=== PATIENT | female | born 1965 | race American Indian/Alaskan Native ===

== ENCOUNTER 2019-06-24 19:55 | Emergency (ER) | payer OTHER ==
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
[2019-06-24] MEDS ORDERED: IBUPROFEN PO ONE (22:47)
[2019-06-24] MEDS ORDERED: FLEXERIL PO ONE (22:47)
[2019-06-24 23:21] VITALS: BP 167/80
== END 2019-06-24 23:00 | disposition home or self-care (01) ==
LOC: ED 19:55
DX: M54.5 Low back pain (principal); M25.531 Pain in right wrist; M25.561 Pain in right knee; M25.562 Pain in left knee; M54.2 Cervicalgia; I11.0 Hypertensive heart disease with heart failure; I50.9 Heart failure, unspecified; E11.9 Type 2 diabetes mellitus without complications; Z88.8 Allergy status to other drugs, medicaments and biological substances; V49.49XA Driver injured in collision with other motor vehicles in traffic accident, initial encounter; Y93.89 Activity, other specified; Y92.410 Unspecified street and highway as the place of occurrence of the external cause; Y99.8 Other external cause status
CPT/HCPCS: 72100